=== PATIENT | female | born 1950 | race Caucasian/White ===

== ENCOUNTER → 2019-07-22 | Outpatient (CLI) | payer MEDICARE ==
[~2019-07-22] MED LIST: CITA20SO PO; DICL75TA2 PO; ENAL1TAB PO; ESTR0.5T PO; FLUT60LO2 TP; GABA-486 PO; IRON1TAB86 PO; LORA10TA7 PO; [UNRECOGNIZED DRUG - OTHER]
--- NOTE | 2019-07-23 08:39 | Diagnostic Imaging Report ---
Digital mammogram. Indication: Bilateral screening. This study was compared to the prior exam of 12/12/2015 and 08/25/2014. At this time there are no current complaints. There are scattered fibroglandular densities in both breasts which could obscure a lesion. Overall, there does not appear to have been any significant change since the prior study. The benign-appearing nodular density in the lateral aspect of the right breast at mid depth seen previously is again evident and no different. This may represent an intramammary lymph node. There is no primary or secondary sign of malignancy noted. Impression: 1. There is no evidence of malignancy. 2. The patient should have her annual bilateral screening mammogram on schedule in July 2020. ACR BI-RADS Category 1: Negative. Result letter will be mailed to the patient. Note: At least 10% of breast cancer is not imaged by mammography. Dictated by: Dictated on workstation # [id number]
== END ==
LOC: RAD 13:51
PROVIDERS: ATTEND Nurse Practitioner Family
DX: Z12.31 Encounter for screening mammogram for malignant neoplasm of breast (principal)
CPT/HCPCS: 77067